=== PATIENT | female | born 1980 | race Caucasian/White ===

== ENCOUNTER → 2017-08-10 | Outpatient (CLI) | payer MEDICAID ==
[~2017-08-10] MED LIST: ASPI-692 PO; HYDR-3503 PO; HYDR-4309 PO; IBUP800T37 PO; LOR5/325 PO; NAPR500T75 PO; ONDA4TAB PO; PER PO; TRAM-627 PO
--- NOTE | 2017-08-10 14:14 | RADIOLOGY IMAGING REPORT ---
FACILITY: [facility] PATIENT NAME: Kelle Collins : 1980 MR: [id number] V: [id number] EXAM DATE: ORDERING PHYSICIAN: NEFTALI KEARNEY TECHNOLOGIST: Location: [facility] Patient: Kelle Collins : 1980 Visit/Account:[id number] Date of Sevice: 08/10/2017 GALLBLADDER HISTORY: Pain, nausea and diarrhea x5 weeks COMPARISON: CT February 29, 2016 FINDINGS: Gallbladder: There is a nonmobile nonshadowing echogenic focus of the neck of the gallbladder measuri ng 6 mm in diameter. There is no demonstration of gallbladder wall thickening or pericholecystic flu id. There is a positive Holm sign by technologist notation. Liver: Negative. Common duct: Normal, 2.3 mm diameter. Pancreas: Partially obscured by bowel, visualized aspects unremarkable. Right kidney: Right kidney is unremarkable as imaged measuring 10.2 cm in length Upper abdominal aorta and IVC: Patent. Ascites: None visualized. IMPRESSION: There is a nonshadowing nonmobile echogenic focus within the neck of the gallbladder. This could rep resent a nonshadowing stone versus polyp. There was a positive Holm sign by technologist notation Report Dictated By: Maria Del Carmen Mike MD at 08/10/2017 2:07 PM Report E-Signed By: Maria Del Carmen Mike MD at 08/10/2017 2:10 PM WSN:[email or web address]
== END ==
LOC: US 02:25
PROVIDERS: ATTEND Obstetrics & Gynecology
DX: R19.8 Other specified symptoms and signs involving the digestive system and abdomen (principal)
CPT/HCPCS: 76705

== ENCOUNTER 2017-08-30 01:33 | Day surgery (SDC) | payer MEDICAID ==
[2017-08-30] VITALS (8 sets, daily range): BP systolic 108–116; BP diastolic 74–85
[~2017-08-30] VITALS: Ht 160 cm; Wt 86.6 kg
[~2017-08-30 01:33] MED LIST changes: +CHOL500045 PO; +PROG100C PO; +PROG200C PO; +TEST200K; +TEST60GE TD; +THYR15TA6 PO; +THYR60TA25 PO
[2017-08-30 06:40] LABS: PLATELET COUNT, AUTOMATED 227 K/uL (150-450)
[2017-08-30] MEDS ORDERED: NORMOSOL R SOLN(*) 1000 ML BAG 1,000 ML IV PRN (06:45)
[2017-08-30] MEDS ORDERED: LEVOFLOXACIN/D5W*500 MG/100 ML 100 ML IVPB ONE (06:45)
[2017-08-30] MEDS ORDERED: MIDAZOLAM 2 MG/2 ML VIAL IVP PRN (06:45)
[2017-08-30] MEDS ORDERED: FAMOTIDINE 20 MG TAB PO ONE (06:45)
[2017-08-30] MEDS ORDERED: INDOCYANINE GREEN 25 MG VIAL IVP ONE (06:45)
[2017-08-30] MEDS ORDERED: LIDOCAINE/SOD BICARB 8.4% SYR ID ONE (06:45)
[2017-08-30] MEDS ORDERED: IOPAMIDOL 61% 75 ML INFUS BTL 0 ML ONE (07:14)
[2017-08-30] MEDS ORDERED: ROPIVACAINE 0.5% 20 ML VIAL ONE (07:14)
[2017-08-30] MEDS ORDERED: ONDANSETRON 4 MG/2 ML VIAL ONE (07:29)
[2017-08-30] MEDS ORDERED: MIDAZOLAM 2 MG/2 ML VIAL ONE (07:29)
[2017-08-30] MEDS ORDERED: fentaNYL CITR 100 MCG/2 ML AMP ONE ×3 (07:29→10:52)
[2017-08-30] MEDS ORDERED: ROCURONIUM BROM 10 MG/ML 10 ML ONE (07:29)
[2017-08-30] MEDS ORDERED: PROPOFOL EMUL(*) 10MG/ML 20 ML 20 ML ONE (07:29)
[2017-08-30] MEDS ORDERED: DEXAMETHASONE SOD PHOS 10MG/ML ONE (07:29)
[2017-08-30] MEDS ORDERED: LIDOCAINE MPF 1% 5 ML VIAL ONE (07:29)
[2017-08-30] MEDS ORDERED: PHENYLEPHRINE/NS/PF 0.4MG/10ML ONE (08:06)
[2017-08-30] MEDS ORDERED: SUGAMMADEX SOD 500 MG/5 ML SDV ONE (08:54)
[2017-08-30] MEDS ORDERED: ACETAMINOPHEN(*)1000 MG/100 ML 100 ML IVPB ONE (09:20)
[2017-08-30] MEDS ORDERED: OXYC-854 PO (09:24)
[2017-08-30] MEDS ORDERED: DOCU-416 PO (09:24)
--- NOTE | 2017-08-30 09:32 | Short(Outpt) Discharge Summary ---
Discharge Summary Reason for Hosp/Final Diag: (1) Cholelithiasis Status: Chronic Hospital Course & Plan: Robotic cholecystectomy completed without problems. Departure Discharge to: Home, Self Care Discharge Instructions Home Meds Active Scripts Docusate Sodium (COLACE) 100 Mg Capsule, 1 CAP PO BID, #30 CAP 0 Refills TAKE WITH A FULL GLASS OF WATER Prov:RANDALL VARGAS MD 08/30/17 Oxycodone Hcl/Acet 5/325 Mg (ENDOCET 5-325 TABLET) 1 Each Tablet, 1-2 TAB PO Q4H Y for PAIN, #30 TAB 0 Refills Prov:RANDALL VARGAS MD 08/30/17 Reported Medications Cholecalciferol (Vitamin D3) (VITAMIN D) 5,000 Unit Tablet, 5000 UNIT PO QDAY 08/29/17 Progesterone,Micronized (PROGESTERONE) 200 Mg Capsule, 200 MG PO QDAY, CAPSULE 08/29/17 Thyroid,Pork (ARMOUR THYROID) 60 Mg Tablet, 60 MG PO QDAY 08/29/17 Testosterone (Testosterone) 60 Gm Gel..performance solutions specialist, 30 GM TD QDAY 08/29/17 Discontinued Reported Medications Progesterone,Micronized (PROGESTERONE) Unknown Strength Capsule, PO, CAPSULE 08/29/17 Testosterone Cypionate (Testone Cik) Unknown Strength Kit 08/29/17 Thyroid,Pork (ARMOUR THYROID) 15 Mg Tablet, 15 MG PO QDAY 08/29/17 Discontinued Scripts Hydrocodone Bit/Acetaminophen (HYDROCODON-ACETAMINOPHEN 5-325) 1 Each Tablet, 1 EACH PO Q4-6H Y for mod, #20 TAB TAKE ONE TABLET BY MOUTH EVERY 4-6 HOURS NEEDED FOR PAIN Prov:RADHA LE MD 04/29/16 Ibuprofen (IBUPROFEN) 800 Mg Tablet, 800 MG PO Q8H Y for PAIN, #30 TAB 0 Refills Prov:NEFTALI KEARNEY MD 04/13/16 Hydrocodone Bit/Acetaminophen (NORCO 5-325 TABLET) 1 Each Tablet, 1 EACH PO Q4- 6H Y for PAIN, #12 TAB Prov:SITA BOWLES 02/29/16 Follow up Referrals: General Surgery - 09/12/17 @ Surgery, General with Randall Vargas Md You have a follow up appointment scheduled with Dr. Vargas on 09/12/17, at 3: 30pm. Diet: Regular Activity: As Tolerated Special Instructions: You may remove the white surgical dressings on 09/01/17, then you can shower. After showering, leave the incisions open to air but leave the steristrips in place until they fall off on their own. Do not immerse the incisions for 2 weeks. Problem Qualifiers (1) Cholelithiasis: Cholelithiasis location: gallbladder Cholecystitis presence: without cholecystitis Biliary obstruction: without biliary obstruction Qualified Codes: K80.20 - Calculus of gallbladder without cholecystitis without obstruction RANDALL VARGAS MD Aug 30, 2017 09:32
[2017-08-30] MEDS ORDERED: HYDROmorphone HCL 2 MG/ML SDV ONE (09:33)
--- NOTE | 2017-08-30 09:39 | Post Operative Progress Note ---
Post Operative Progress Note Date: Aug 30, 2017 Time: 09:32 Surgeon: Jimmie Dictation number: [id number] Anesthesia: GETA by Dr. Elam Pre-Op Diagnosis: Symptomatic gallstones Post-Op Diagnosis: KRISSY Findings: C/W dx Procedure(s): Robotic cholecystectomy Specimen Removed:(May be N/A): GB and contents Complications: None Fluids: See anesthesia record Estimated Blood Loss: Minimal Date OP Note Dictated: Aug 30, 2017 Time OP Note Dictated: 09:34 RANDALL VARGAS MD Aug 30, 2017 09:39
[2017-08-30] MEDS ORDERED: PROMETHAZINE 25 MG/ML 1 ML AMP ONE (09:49)
--- NOTE | 2017-08-30 16:29 | OPERATIVE REPORT 1 ---
EVENT DATE: August 30, 2017 SURGEON: Joey Samuel MD ANESTHESIOLOGIST: Roni Elam MD ANESTHESIA: General endotracheal anesthesia. PREOPERATIVE DIAGNOSIS Symptomatic gallstones. POSTOPERATIVE DIAGNOSIS Symptomatic gallstones. PROCEDURE PERFORMED Robotic cholecystectomy. COMPLICATIONS None. CONDITION Stable. BLOOD LOSS Minimal. INDICATIONS This is a 37-year-old female who presented to my office with right upper quadrant abdominal pain that was initially postprandial, but over the last several days, it has become more constant, although eating does make it worse. She was found on ultrasound to have gallstones, and she was requesting to have her gallbladder removed. DESCRIPTION OF PROCEDURE The patient was brought to the operating room and placed supine on the operating table. General endotracheal anesthesia was administered. Her abdomen was prepped and draped in a sterile fashion. Timeout was completed. I injected the inferior umbilical skin with 0.5% ropivacaine plain. I made a curvilinear smiley face-type incision in the inferior umbilical rim and dissected through the dermis and subcutaneous fat. I identified the midline fascia and made a vertical incision in the midline fascia, grasped the fascial edges with Timo clamps, retracted the abdominal wall towards the ceiling, and then bluntly entered the abdominal cavity with my finger. I placed two interrupted 0 Vicryl sutures transversely through the vertical fascial defect and inserted a 12 mm Edis robotic port into this wound and secured it in place with sutures. I inserted the robotic camera through this port and then insufflated the abdomen to a pressure of 15 mmHg. Gross inspection of the abdominal cavity did not reveal any obvious evidence of pathology or interrelated injuries. Next, under direct visualization, I placed an 8 mm port in the left upper quadrant between the left upper quadrant port and the umbilical port and then a third one in the right mid abdomen. I then docked the robot, targeted it, and then inserted the camera and the ProGrasp into the left upper quadrant port, the hook into the left mid port, and the Cottier grasper in the right port. These were all inserted under direct visualization. I then scrubbed out, went to the console, grasped the fundus of the gallbladder, and retracted it towards the patient's right shoulder. There were adhesions to the gallbladder, which I took down easily with the hook electrocautery. I then identified the infundibulum and retracted it towards the patient's right hip. I then divided the peritoneum overlying the infundibulum and up both the medial and lateral aspects of the gallbladder and then stripped the peritoneum down over the cystic duct and artery. I used the Firefly to ensure that I was next to the cystic duct. I clearly identified the common bile duct with the Firefly, and I was well away from it. I then cleaned off the cystic duct and artery, clipped them proximally and distally, and divided them between clips. The cystic duct stump had three clips on it to prevent a bile leak. I then divided the posterior attachments of the gallbladder and it from the gallbladder fossa. The gallbladder was placed in a surgical specimen retrieval bag and ultimately removed from the abdomen through the umbilical port site. I irrigated and dried the right upper quadrant and removed all of the irrigation fluid. I inspected the gallbladder fossa as well as the cystic duct and artery stumps for bleeding and bile leaks, and there was no bleeding or bile leak. I then had all of the robotic instruments removed, and then the robot was undocked. I placed a figure-of- eight 0 Vicryl suture in the midline fascial defect between the preplaced sutures and tied all three of these down with good reapproximation of the fascial edges. The skin at each port site was closed with 4-0 Monocryl subcuticular sutures. The skin was cleaned and dried. Steri-Strips were applied, followed by sterile surgical dressings. The patient was then awakened and extubated in the operating room and transported to the recovery room in stable condition having tolerated the procedure without any apparent problems. BARRY
[2017-09-02] MEDS ORDERED: HYDR-385 PO ×3 (07:40→08:13)
== END 2017-08-30 10:35 | disposition home or self-care (01) ==
LOC: OR 01:33
PROVIDERS: ATTEND Surgery
DX: K80.80 Other cholelithiasis without obstruction (principal); E03.9 Hypothyroidism, unspecified
CPT/HCPCS: 36415; 47562; 84443; 85025; 88304; J0131; J1100; J1170; J1956; J2001; J2250; J2370; J2405; J2550; J2704; J2795; J3010; S2900; Q9967